=== PATIENT | female | born 1960 | race Caucasian/White ===

== ENCOUNTER 2016-10-23 12:04 | Inpatient (IN) | payer MEDICAID ==
[~2016-10-23] VITALS: Ht 152.4 cm; Wt 90.0 kg
[2016-10-23 12:09] VITALS: Ht 152.4 cm; Wt 90.0 kg
[2016-10-23] MEDS ORDERED: SOD CHLORIDE 0.9% 1,000 ML IV STA (12:24)
[2016-10-23 12:54] LABS: BASOPHIL # 0.1 10^3/ul (0.0-0.1); BASOPHILS % 0.7 % (0.0-2.0); EOSINOPHILS # 0.2 10^3/ul (0.0-0.5); EOSINOPHILS % 3.1 % (0.0-7.0); HEMATOCRIT 36.6 % (37.0-47.0); HEMOGLOBIN 12.2 g/dl (12.0-16.0); LYMPHOCYTES # 1.2 10^3/ul (0.8-2.9); LYMPHOCYTES % 17.1 % (15.0-51.0); MEAN CORPUSCULAR HEMOGLOBIN 29.1 pg (29.0-33.0); MEAN CORPUSCULAR HGB CONC 33.3 g/dl (32.0-37.0); MEAN CORPUSCULAR VOLUME 87.4 fl (82.0-101.0); MEAN PLATELET VOLUME 11.6 fl (7.4-10.4); MONOCYTE # 0.6 10^3/ul (0.3-0.9); PLATELET COUNT 230 10^3/UL (140-415); RED BLOOD COUNT 4.19 10^6/ul (4.20-5.40); RED CELL DISTRIBUTION WIDTH 13.2 % (11.5-14.5); WHITE BLOOD COUNT 6.8 10^3/ul (4.8-10.8)
[2016-10-23 13:07] LABS: ADD UMIC YES; UR ASCORBIC ACID NEGATIVE (NEGATIVE); UR BACTERIA FEW /HPF (NONE SEEN); UR BILIRUBIN (Dip) NEGATIVE (NEGATIVE); UR BLOOD (Dip) 1+ mg/dL (NEGATIVE); UR CLARITY CLOUDY (CLEAR); UR COLOR YELLOW (YELLOW); UR GLUCOSE (Dip) 3+ mg/dL (NEGATIVE); UR KETONES (Dip) NEGATIVE (NEGATIVE); UR LEUKOCYTE ESTERASE (Dip) 3+ Leu/ul (NEGATIVE); UR MUCUS MANY /HPF (NONE SEEN); UR NITRITE (Dip) NEGATIVE (NEGATIVE); UR RBC 2 /HPF (0-5); UR SPECIFIC GRAVITY (Dip) 1.009 (1.003-1.030); UR SQUAMOUS EPITHELIAL CELL FEW /HPF (FEW); UR TOTAL PROTEIN (Dip) 2+ mg/dl (NEGATIVE); UR UROBILINOGEN (Dip) NEGATIVE (NEGATIVE); UR WBC CLUMPS MANY /HPF (NONE SEEN)
[2016-10-23 13:20] LABS: ALBUMIN 3.9 g/dl (3.3-4.9); ALBUMIN/GLOBULIN RATIO 0.95; CALCIUM 9.1 mg/dl (8.4-10.2); CREATININE 3.03 mg/dl (0.44-1.00); POTASSIUM 5.5 mmol/L (3.5-5.1)
[2016-10-23] MEDS ORDERED: SOD CHLORIDE 0.9% 1,000 ML IV ONE (13:30)
[2016-10-23] MEDS ORDERED: CEFTRIAXONE 1 GM/50 ML (PMX) 50 ML IVPB ONE (14:00)
[2016-10-23] MEDS ORDERED: INSULIN REGULAR, HUMAN 100 UNIT/1 ML 3ML VIAL SC ONE (14:00)
--- NOTE | 2016-10-23 14:30 | ERD ---
ER Documentation Chief Complaint Date/Time DATE: 10/23/16 TIME: 14:28 Chief Complaint sent from the clinic for hyperglycemia - (IGOR YARBROUGH PA-C) HPI 55-year-old female, type 2 diabetes insulin-dependent with hypertension presents with hyperglycemia from the clinic today. Patient states that she ran out of her insulin a week ago when she presented to the clinic to get a refill and her blood sugar was greater than 500 so she was sent in for evaluation. She has not had any dizziness, chest pain or shortness of breath. Denies abdominal pain, nausea or vomiting. (IGOR YARBROUGH PA-C) ROS All systems reviewed and are negative except as per history of present illness. (IGOR YARBROUGH PA-C) Medications Home Meds Reported Medications Insulin NPH Human Isophane (Humulin N) 100 Unit/1 Ml Vial, 20 UNIT SQ QPM, VIAL 10/23/16 Insulin NPH Human Isophane (Humulin N) 100 Unit/1 Ml Vial, 40 UNIT SQ QAM, VIAL 10/23/16 Furosemide* (Furosemide*) Unknown Strength Tablet, 1 TAB PO DAILY, #60 TAB 10/23/16 Pioglitazone Hcl* (Pioglitazone Hcl*) Unknown Strength Tablet, 1 TAB PO DAILY, TAB 10/23/16 Gabapentin* (Gabapentin*) Unknown Strength Capsule, 1 CAP PO BID, #60 CAP 10/23/16 Losartan Potassium* (Losartan Potassium*) 50 Mg Tablet, 50 MG PO BID, TAB 10/23/16 Allergies Allergies: Coded Allergies: No Known Allergy (Unverified , 10/23/16) PMhx/Soc History of Surgery: Yes (hernia repair, , sterilization ) Anesthesia Reaction: No Hx Neurological Disorder: No Hx Respiratory Disorders: No Hx Cardiac Disorders: Yes (HTN) Hx Psychiatric Problems: No Hx Miscellaneous Medical Probl: Yes (RA, DM ) Hx Alcohol Use: No Hx Substance Use: No Hx Tobacco Use: No Smoking Status: Never smoker (IGOR YARBROUGH PA-C) Physical Exam Vitals Vital Signs Date Time Temp Pulse Resp B/P Pulse Ox O2 Delivery O2 Flow Rate FiO2 10/23/16 16:15 98.1 77 16 149/82 96 Room Air 10/23/16 14:23 86 20 152/82 98 Room Air 10/23/16 12:09 98.5 18 18 143/75 97 (UMU VIEYRA MD) Physical Exam General: Well-developed, well-nourished. The patient appears in no acute distress. HEENT: Head is normocephalic, atraumatic. No scleral icterus. Neck: Supple. Nontender. Lungs: Clear to auscultation. Normal air movement. Heart: Regular rate and rhythm. S1 and S2 are normal. No murmurs, gallops, or rubs. Abdomen: Soft, nontender, nondistended. Bowel sounds are normoactive. Extremities: No clubbing or cyanosis. Normal pulses. Moving extremities x 4. No weakness. Neurologic: Alert and oriented 3. No focal deficits. Skin: Normal turgor. No rash or lesions. (IGOR YARBROUGH PA-C) Result Diagram: 10/23/16 1240 10/23/16 1240 Results 24 hrs Laboratory Tests Test 10/23/16 12:40 10/23/16 12:45 10/23/16 14:06 10/23/16 18:51 White Blood Count 6.810^3/ul Red Blood Count 4.1910^6/ul Hemoglobin 12.2g/dl Hematocrit 36.6% Mean Corpuscular Volume 87.4fl Mean Corpuscular Hemoglobin 29.1pg Mean Corpuscular Hemoglobin Concent 33.3g/dl Red Cell Distribution Width 13.2% Platelet Count 89396^3/UL Mean Platelet Volume 11.6fl Neutrophils % 71.0% Lymphocytes % 17.1% Monocytes % 8.0% Eosinophils % 3.1% Basophils % 0.7% Nucleated Red Blood Cells % 0.0/100WBC Neutrophils # (Manual) 4.910^3/ul Lymphocytes # 1.210^3/ul Monocytes # 0.610^3/ul Eosinophils # 0.210^3/ul Basophils # 0.110^3/ul Nucleated Red Blood Cells # 0.010^3/ul Sodium Level 125mmol/L Potassium Level 5.5mmol/L Chloride Level 87mmol/L Carbon Dioxide Level 23mmol/L Anion Gap 21 Blood Urea Nitrogen 82mg/dl Creatinine 3.03mg/dl Glucose Level 715mg/dl Bedside Glucose > 595mg/dL > 595mg/dL 513mg/dL Calcium Level 9.1mg/dl Total Bilirubin 0.0mg/dl Direct Bilirubin 0.00mg/dl Indirect Bilirubin 0.0mg/dl Aspartate Amino Transf (AST/SGOT) 18IU/L Alanine Aminotransferase (ALT/SGPT) 35IU/L Alkaline Phosphatase 140IU/L Total Protein 8.0g/dl Albumin 3.9g/dl Globulin 4.10g/dl Albumin/Globulin Ratio 0.95 Urine Color YELLOW Urine Clarity CLOUDY Urine pH 7.0 Urine Specific [place] 1.009 Urine Ketones NEGATIVEmg/dL Urine Nitrite NEGATIVEmg/dL Urine Bilirubin NEGATIVEmg/dL Urine Urobilinogen NEGATIVEmg/dL Urine Leukocyte Esterase 3+Sofy/ul Urine Microscopic RBC 2/HPF Urine Microscopic WBC 121/HPF Urine Squamous Epithelial Cells FEW/HPF Urine Bacteria FEW/HPF Urine Mucus MANY/HPF Urine Hemoglobin 1+mg/dL Urine Glucose 3+mg/dL Urine Total Protein 2+mg/dl Current Medications Medications (Trade) Dose Ordered Sig/Vic Route PRN Reason Start Time Stop Time Status Last Admin Dose Admin Sodium Chloride 1,000 ml @ 1,000 mls/hr Q1H STAT IV 10/23/16 12:24 10/23/16 13:23 DC 10/23/16 12:50 Sodium Chloride 1,000 ml @ 1,000 mls/hr Q1H ONCE IV 10/23/16 13:30 10/23/16 14:29 DC 10/23/16 13:33 Ceftriaxone Sodium (Rocephin) 50 ml @ 100 mls/hr ONCE ONCE IVPB 10/23/16 14:00 10/23/16 14:29 DC 10/23/16 13:57 Insulin Human Regular (Humulin R) 12 unit ONCE ONCE SC 10/23/16 14:00 10/23/16 14:01 DC 10/23/16 14:12 Ondansetron HCl (Zofran Inj) 4 mg BRIDGE ORDER PRN IV NAUSEA AND/OR VOMITING 10/23/16 16:00 10/24/16 15:59 Acetaminophen (Tylenol Tab) 650 mg ER BRIDGE PRN PO MILD PAIN/FEVER 10/23/16 16:00 10/24/16 15:59 IV Flush (NS 3 ml) 3 ml PER PROTOCOL IV 10/23/16 16:30 Ondansetron HCl (Zofran Tab) 4 mg Q6H PRN PO NAUSEA AND/OR VOMITING 10/23/16 16:30 Ondansetron HCl (Zofran Inj) 4 mg Q6H PRN IV NAUSEA AND/OR VOMITING 10/23/16 16:30 Metoclopramide HCl (Reglan) 10 mg Q6H PRN IV NAUSEA AND/OR VOMITING 10/23/16 16:30 Acetaminophen (Tylenol Tab) 650 mg Q6H PRN PO PAIN LEVEL 1-3 OR FEVER 10/23/16 16:30 Acetaminophen/ Hydrocodone Bitart ([place] (5/325)) 1 tab Q6H PRN PO MODERATE PAIN LEVEL 4-6 10/23/16 16:30 Morphine Sulfate (morphine) 2 mg Q4H PRN IV SEVERE PAIN LEVEL 7-10 10/23/16 16:30 Docusate Sodium (Colace) 100 mg Q12H PRN PO CONSTIPATION 10/23/16 16:30 Magnesium Hydroxide (Milk Of Mag) 30 ml DAILY PRN PO CONSTIPATION 10/23/16 16:30 Bisacodyl (Dulcolax) 5 mg DAILY PRN PO CONSTIPATION 10/23/16 16:30 Enoxaparin Sodium (Lovenox) 30 mg DAILY SC 10/24/16 09:00 Miscellaneous Information (* Miscellaneous Pharmacy Order) Discontinue current oral sulfonylur... ONCE ONCE XX 10/23/16 16:30 10/23/16 16:51 DC Diagnostic Test (Pha) (Accu-Chek) 1 ea 02 XX 10/24/16 02:00 Insulin Glargine (Lantus) 23 unit QHS SC 10/23/16 21:00 Insulin Aspart (Novolog Insulin Pen) 7 unit WITH MEALS SC 10/23/16 18:00 Miscellaneous Information (* Miscellaneous Pharmacy Order) HYPOGLYCEMIA PROTOCOL w... ONCE ONCE XX 10/23/16 16:30 10/23/16 16:52 DC Insulin Aspart (Novolog Insulin Pen) NOVOLOG *MILD* ALGORITHM WITH MEALS BEDTIME SC 10/23/16 18:00 Miscellaneous Information Discontinue all previ... ONCE ONCE XX 10/23/16 16:30 10/23/16 16:52 DC Sodium Chloride (NS) 1,000 ml @ 125 mls/hr Q8H IV 10/23/16 16:30 10/23/16 17:30 Miscellaneous Information 1 ea NOTE XX 10/23/16 17:00 Glucose (Glutose) 15 gm Q15M PRN PO DECREASED GLUCOSE 10/23/16 17:00 Glucose (Glutose) 22.5 gm Q15M PRN PO DECREASED GLUCOSE 10/23/16 17:00 Dextrose (D50w Syringe) 25 ml Q15M PRN IV DECREASED GLUCOSE 10/23/16 17:00 Dextrose (D50w Syringe) 50 ml Q15M PRN IV DECREASED GLUCOSE 10/23/16 17:00 Glucagon (Glucagen) 1 mg Q15M PRN IM DECREASED GLUCOSE 10/23/16 17:00 Glucose (Glutose) 15 gm Q15M PRN BUCCAL DECREASED GLUCOSE 10/23/16 17:00 (UMU VIEYRA MD) Procedures/MDM ED course: She was started on fluid bolus normal saline, labs and urine were obtained. Subsequently the blood sugar was in the 700s, corrected sodium was 135 and this was discussed with my attending physician, she will be treated for urinary tract infection Rocephin 1 g IV, and additional fluid bolus of normal saline 1 L , and 12 units of insulin's cutaneous. I spoke with the clinic, they stated that it was her first time visiting this clinic, she was previously seen in [place]. I have spoken with the patient and she is not aware of any kidney disease, she does not recall when her last renal function numbers were, she states that the last time blood work was done on her was in April in [place]. Medical decision makin-year-old female presents with type 2 diabetes uncontrolled, urinary tract infection, dehydration. Her blood glucose level was in the 700s, this will need correction with rehydration in the emergency department as well as further care and management by the hospital. Patient is not in diabetic ketoacidosis, her CO2 is normal, there is no ketonuria. However , BUN and creatinine are elevated, there is evidence of dehydration, renal injury versus acute kidney failure, and because the patient's baseline labs are not known because they were done in [place] and patient does not have recollection of the numbers or her history, patient for further benefit from hospitalization, and management of her diabetes. She was started on fluids in the emergency department given insulin as well as IV antibiotics to treat for a urinary tract infection. The case was reviewed and discussed with Dr. Vieyra who agrees with the plan of care including labs, treatment, and advanced imaging as appropriate. Patient's blood pressure was elevated (>120/80) but appears stable without evidence of hypertension emergency or urgency. The patient was counseled about the risks of hypertension and urged to pursue outpatient monitoring and therapy within a week with their primary care physician. (IGOR YARBROUGH PA-C) Patient is a 55-year-old female with diabetes mellitus who ran out of insulin 1 week ago and presents with significant hyperglycemia. She has evidence of renal impairment of unknown duration. She is also found to have a urinary tract infection. There is no evidence of DKA. There is no evidence of sepsis. The patient will be admitted for reinitiation of glycemic control and further workup of potential acute renal injury. Urine culture was sent, and the patient was given ceftriaxone for initial treatment of urinary tract infection. (UMU VIEYRA MD) Departure Diagnosis: Primary Impression: Diabetes type 2, uncontrolled Additional Impressions: UTI (urinary tract infection) Acute kidney injury Dehydration Condition: Stable IGOR YARBROUGH PA-C Oct 23, 2016 14:25 UMU VIEYRA MD Oct 23, 2016 19:01
[2016-10-23] MEDS ORDERED: ACETAMINOPHEN 325 MG TAB PO PRN ×2 (16:00→16:30)
[2016-10-23] MEDS ORDERED: ONDANSETRON 4 MG INJ IV PRN ×2 (16:00→16:30)
[2016-10-23] MEDS ORDERED: LOSA50TA6 PO (16:12)
[2016-10-23] MEDS ORDERED: GABA300C16 PO (16:13)
[2016-10-23] MEDS ORDERED: PIOG30TA26 PO (16:14)
[2016-10-23] MEDS ORDERED: FURO20TA3 PO (16:15)
[2016-10-23] MEDS ORDERED: NPH,100V SQ ×2 (16:19)
--- NOTE | 2016-10-23 16:26 | HP ---
Date/Time of Note Date/Time of Note DATE: 10/23/16 TIME: 16:22 Assessment/Plan VTE Prophylaxis VTE Prophylaxis Intervention: SCD's Assessment/Plan Assessment/Plan 55 yo F admitted for hyperglycemia and likely ASHLEY in setting of insulin nonadherence #hyperglycemia: insulin, fluids, DM education consult -DM diet -hold home DM PO meds #ASHLEY: IVFs. If not improved in AM, consider GENARO and urine lytes -repeat UA once Cr improved to further eval proteinuria and hemoglobninuria. -as pt did not endorse dysuria, no indication for abx -hold home arb DVT prophx anticipate discharge in 1-2 days pending improvement in Cr and BGs HPI/ROS Admit Date/Time Admit Date/Time Hx of Present Illness CC sent from clinic for hyperglycemia HPI 55 yo F with pmhx DM sent from clinic when labwork done as part of routine check up today showed hyperglycemia. Of note, pt with known hx DM2 is supposed to be on NPH 40 at night and 20 in the morning but ran out of insulin 1 week ago. Denies polyuria or polydipsia. No CHF hx. PMH/Family/Social Past Medical History Medical History: diabetes Social History lives in the community Smoking Status: Never smoker Exam/Review of Systems Vital Signs Vitals Vital Signs Date Time Temp Pulse Resp B/P Pulse Ox O2 Delivery O2 Flow Rate FiO2 10/23/16 14:23 86 20 152/82 98 Room Air 10/23/16 12:09 98.5 Exam Exam nad MMM EOMI rrr lungs clear abd soft no rashes no edema Cr 3, BG high 500s, AG 21 UA with protein Labs Result Diagram: 10/23/16 1240 10/23/16 1240 Medications Medications Current Medications Ondansetron HCl (Zofran Tab) 4 mg Q6H PRN PO NAUSEA AND/OR VOMITING; Start at 16:30; Status UNV Ondansetron HCl (Zofran Inj) 4 mg Q6H PRN IV NAUSEA AND/OR VOMITING; Start at 16:30; Status UNV Metoclopramide HCl (Reglan) 10 mg Q6H PRN IV NAUSEA AND/OR VOMITING; Start at 16:30; Status UNV Acetaminophen (Tylenol Tab) 650 mg Q6H PRN PO PAIN LEVEL 1-3 OR FEVER; Start at 16:30; Status UNV Acetaminophen/ Hydrocodone Bitart ([place] (5/325)) 1 tab Q6H PRN PO MODERATE PAIN LEVEL 4-6; Start 10/23/16 at 16:30; Status UNV Morphine Sulfate (morphine) 2 mg Q4H PRN IV SEVERE PAIN LEVEL 7-10; Start 10/23 at 16:30; Status UNV Docusate Sodium (Colace) 100 mg Q12H PRN PO CONSTIPATION; Start 10/23/16 at 16: 30; Status UNV Magnesium Hydroxide (Milk Of Mag) 30 ml DAILY PRN PO CONSTIPATION; Start at 16:30; Status UNV Bisacodyl (Dulcolax) 5 mg DAILY PRN PO CONSTIPATION; Start 10/23/16 at 16:30; Status UNV Enoxaparin Sodium (Lovenox) 40 mg DAILY SC ; Start 10/24/16 at 09:00; Status UNV MILENA GOLDSMITH MD Oct 23, 2016 16:26
[2016-10-23] MEDS ORDERED: DOCUSATE SODIUM 100 MG CAP PO PRN (16:30)
[2016-10-23] MEDS ORDERED: HYPOGLYCEMIA PROTOCOL when Glucose is <70 mg/dL or symptomatic <90 mg/dL. XX ONE (16:30)
[2016-10-23] MEDS ORDERED: BISACODYL (EC) 5 MG TAB PO PRN (16:30)
[2016-10-23] MEDS ORDERED: METOCLOPRAMIDE 10 MG INJ IV PRN (16:30)
[2016-10-23] MEDS ORDERED: HYDROCODONE/APAP (5/325) TAB PO PRN (16:30)
[2016-10-23] MEDS ORDERED: NACL 0.9% 3 ML SYG IV SCH (16:30)
[2016-10-23] MEDS ORDERED: SOD CHLORIDE 0.9% 1,000 ML IV SCH (16:30)
[2016-10-23] MEDS ORDERED: morphine 2 MG INJ IV PRN (16:30)
[2016-10-23] MEDS ORDERED: Discontinue current oral sulfonylureas (glyburide, glipizide, and/or glimepiride) prior to XX ONE (16:30)
[2016-10-23] MEDS ORDERED: MAGNESIUM HYDROXIDE 30ML CUP PO PRN (16:30)
[2016-10-23] MEDS ORDERED: ONDANSETRON 4 MG TAB PO PRN (16:30)
[2016-10-23] MEDS ORDERED: GLUCOSE GEL 15 GRAM TUBE PO PRN ×2 (17:00)
[2016-10-23] MEDS ORDERED: GLUCOSE GEL 15 GRAM TUBE BUCCAL PRN (17:00)
[2016-10-23] MEDS ORDERED: DEXTROSE 50% 50 ML SYRINGE IV PRN ×2 (17:00)
[2016-10-23] MEDS ORDERED: GLUCAGON 1 MG INJ IM PRN (17:00)
[2016-10-23] MEDS ORDERED: INSULIN ASPART [NOVOLOG] 3 ML PEN SC SCH ×2 (18:00)
[2016-10-23 19:05] VITALS: TEMP 97.9
[2016-10-23] MEDS ORDERED: INSULIN REGULAR, HUMAN 100 UNIT/1 ML 3ML VIAL IV ONE (20:00)
[2016-10-23 20:55] LABS: CALCIUM 8.5 mg/dl (8.4-10.2); CREATININE 2.79 mg/dl (0.44-1.00); POTASSIUM 4.9 mmol/L (3.5-5.1)
[2016-10-23] MEDS: INSULIN ASPART [NOVOLOG] 3 ML PEN SC SCH (20:58)
[2016-10-23] MEDS ORDERED: INSULIN GLARGINE [LANtus] 3 ML PEN SC SCH (21:00)
[2016-10-23] MEDS: SOD CHLORIDE 0.9% 1,000 ML IV SCH (21:09)
[2016-10-23 23:28] VITALS: PULSE 81
[2016-10-24] VITALS (9 sets, daily range): BP systolic 134–156; BP diastolic 67–82; PULSE 73–77; RESP 16–18
[2016-10-24] MEDS ORDERED: ACCU-CHEK XX SCH (02:00)
[2016-10-24] MEDS: SOD CHLORIDE 0.9% 1,000 ML IV SCH (02:40)
[2016-10-24 07:42] LABS: BASOPHILS % 0.4 % (0.0-2.0); EOSINOPHILS # 0.3 10^3/ul (0.0-0.5); EOSINOPHILS % 3.7 % (0.0-7.0); HEMATOCRIT 33.8 % (37.0-47.0); LYMPHOCYTES # 1.5 10^3/ul (0.8-2.9); LYMPHOCYTES % 21.9 % (15.0-51.0); MEAN CORPUSCULAR HEMOGLOBIN 28.9 pg (29.0-33.0); MEAN CORPUSCULAR HGB CONC 32.5 g/dl (32.0-37.0); MEAN CORPUSCULAR VOLUME 88.7 fl (82.0-101.0); MEAN PLATELET VOLUME 10.5 fl (7.4-10.4); MONOCYTE # 0.6 10^3/ul (0.3-0.9); MONOCYTES % 8.5 % (0.0-11.0); NEUTROPHILS % 65.2 % (39.0-77.0); PLATELET COUNT 276 10^3/UL (140-415); RED BLOOD COUNT 3.81 10^6/ul (4.20-5.40); RED CELL DISTRIBUTION WIDTH 13.3 % (11.5-14.5); WHITE BLOOD COUNT 6.9 10^3/ul (4.8-10.8)
[2016-10-24 07:52] LABS: CALCIUM 8.4 mg/dl (8.4-10.2); CREATININE 2.66 mg/dl (0.44-1.00); MAGNESIUM 2.7 mg/dl (1.7-2.5); PHOSPHORUS 3.8 mg/dl (2.5-4.9)
[2016-10-24] MEDS ORDERED: INSULIN GLARGINE [LANtus] 3 ML PEN SC SCH (08:00)
[2016-10-24] MEDS: INSULIN ASPART [NOVOLOG] 3 ML PEN SC SCH ×4 (08:39→11:33)
[2016-10-24] MEDS ORDERED: ENOXAPARIN 30 MG/0.3 ML SYG SC SCH (09:00)
[2016-10-24] MEDS ORDERED: LANT3I SC (17:20)
[2016-10-24] MEDS ORDERED: NOVO3I SC (17:20)
--- NOTE | 2016-10-24 17:22 | PDOCDIS ---
Discharge Instructions CONDITION Patient Condition: Good HOME CARE INSTRUCTIONS: Special Diet: 1800 FOLLOW UP/APPOINTMENTS Follow-up Plan You need to see a regular doctor THURSDAY OR THURSDAY to have your blood sugars and your kidney function reassessed. Do not take your losartan or your lasix/furosemide until you see your regular doctor as your kidneys are weak from your blood sugar being so high. Usted necesita sylwia a un mdico regular LUN O para que odom azcar en la jacquelin y odom funcin renal sea reevaluada. No tome odom losartn o odom lasix / furosemida hasta que nicolas a odom mdico regular, ya que campbell riones son dbiles debido a que odom nivel de azcar en la jacquelin es eason alto. MILENA GOLDSMITH MD Oct 24, 2016 17:22
--- NOTE | 2016-10-24 17:25 | DS ---
Date/Time of Note Date/Time of Note DATE: 10/24/16 TIME: 17:23 Discharge Summary Admission/Discharge Info Admit Date/Time Oct 23, 2016 at 23:48 Discharge Date/Time Discharge Diagnosis hyperglycemia, acute kidney injury Patient Condition: Good Procedures a1c too high to measure Cr 3-->2.66 Hx of Present Illness CC sent from clinic for hyperglycemia HPI 55 yo F with pmhx DM sent from clinic when labwork done as part of routine check up today showed hyperglycemia. Of note, pt with known hx DM2 is supposed to be on NPH 40 at night and 20 in the morning but ran out of insulin 1 week ago. Denies polyuria or polydipsia. No CHF hx. Hospital Course Pt started on weight based basal/bolus insulin and BGs improved significantly. Cr improved as well. Pt denied dysuria or hematuria, therefore no indication to treat asymptomatic bactiuria. Pt received DM teaching and new DM testing supplies. Pt discharged on weight based insulin, advised to hold lasix/ARB until seen by PCP which she should do within the next 4-5 days Home Meds Active Scripts Insulin Aspart* (Novolog Insulin Pen*) 100 Unit/Ml Soln, 9 UNIT SC WITH MEALS for 30 Days, #1 VIAL Prov:MILENA GOLDSMITH MD 10/24/16 Insulin Glargine* (Lantus*) 100 Unit/Ml Soln, 27 UNIT SC DAILY@08 for 30 Days, # 1 VIAL Prov:MILENA GOLDSMITH MD 10/24/16 Reported Medications Insulin NPH Human Isophane (Humulin N) 100 Unit/1 Ml Vial, 20 UNIT SQ QPM, VIAL 10/23/16 Insulin NPH Human Isophane (Humulin N) 100 Unit/1 Ml Vial, 40 UNIT SQ QAM, VIAL 10/23/16 Furosemide* (Furosemide*) Unknown Strength Tablet, 1 TAB PO DAILY, #60 TAB 10/23/16 Pioglitazone Hcl* (Pioglitazone Hcl*) Unknown Strength Tablet, 1 TAB PO DAILY, TAB 10/23/16 Gabapentin* (Gabapentin*) Unknown Strength Capsule, 1 CAP PO BID, #60 CAP 10/23/16 Losartan Potassium* (Losartan Potassium*) 50 Mg Tablet, 50 MG PO BID, TAB 10/23/16 Primary Care Provider Care Physician No Primary Pending Labs Laboratory Tests Test 10/23/16 18:51 10/23/16 20:15 10/23/16 22:31 10/24/16 03:36 Bedside Glucose 513mg/dL (70-220) 303mg/dL (70-220) 205mg/dL (70-220) Sodium Level 132mmol/L (135-144) Potassium Level 4.9mmol/L (3.5-5.1) Chloride Level 98mmol/L (97-110) Carbon Dioxide Level 20mmol/L (21-31) Anion Gap 19 (8-16) Blood Urea Nitrogen 74mg/dl (7-20) Creatinine 2.79mg/dl (0.44-1.00) Glucose Level 545mg/dl (70-220) Calcium Level 8.5mg/dl (8.4-10.2) Test 10/24/16 06:54 10/24/16 08:01 10/24/16 11:09 White Blood Count 6.910^3/ul (4.8-10.8) Red Blood Count 3.8110^6/ul (4.20-5.40) Hemoglobin 11.0g/dl (12.0-16.0) Hematocrit 33.8% (37.0-47.0) Mean Corpuscular Volume 88.7fl (82.0-101.0) Mean Corpuscular Hemoglobin 28.9pg (29.0-33.0) Mean Corpuscular Hemoglobin Concent 32.5g/dl (32.0-37.0) Red Cell Distribution Width 13.3% (11.5-14.5) Platelet Count 00430^3/UL (140-415) Mean Platelet Volume 10.5fl (7.4-10.4) Neutrophils % 65.2% (39.0-77.0) Lymphocytes % 21.9% (15.0-51.0) Monocytes % 8.5% (0.0-11.0) Eosinophils % 3.7% (0.0-7.0) Basophils % 0.4% (0.0-2.0) Nucleated Red Blood Cells % 0.0/100WBC (0.0-0.0) Neutrophils # (Manual) 4.510^3/ul (1.7-7.5) Lymphocytes # 1.510^3/ul (0.8-2.9) Monocytes # 0.610^3/ul (0.3-0.9) Eosinophils # 0.310^3/ul (0.0-0.5) Basophils # 0.010^3/ul (0.0-0.1) Nucleated Red Blood Cells # 0.010^3/ul (0.0-0.0) Sodium Level 141mmol/L (135-144) Potassium Level 5.0mmol/L (3.5-5.1) Chloride Level 107mmol/L (97-110) Carbon Dioxide Level 23mmol/L (21-31) Anion Gap 16 (8-16) Blood Urea Nitrogen 72mg/dl (7-20) Creatinine 2.66mg/dl (0.44-1.00) Glucose Level 219mg/dl (70-220) Hemoglobin A1c % (0-5.9) Calcium Level 8.4mg/dl (8.4-10.2) Phosphorus Level 3.8mg/dl (2.5-4.9) Magnesium Level 2.7mg/dl (1.7-2.5) Bedside Glucose 186mg/dL (70-220) 242mg/dL (70-220) MILENA GOLDSMITH MD Oct 24, 2016 17:25
== END 2016-10-24 18:00 | disposition home or self-care (01) | DRG 638 ==
LOC: FTE 12:04 → MS4 23:48
PROVIDERS: ADMIT Internal Medicine; ATTEND Internal Medicine
DX: E11.65 Type 2 diabetes mellitus with hyperglycemia (principal); N39.0 Urinary tract infection, site not specified; N17.9 Acute kidney failure, unspecified; E87.1 Hypo-osmolality and hyponatremia; I10 Essential (primary) hypertension; Z79.4 Long term (current) use of insulin; T38.3X6A Underdosing of insulin and oral hypoglycemic [antidiabetic] drugs, initial encounter; Z91.138 Patient's unintentional underdosing of medication regimen for other reason; E86.0 Dehydration; E87.5 Hyperkalemia
CPT/HCPCS: 36415; 80048; 80053; 81001; 82962; 83036; 83735; 84100; 85025; 87086; 96372; 96374; 96375; J0696; J1650; J1815; J7030